=== PATIENT | male | born 1940 | race Caucasian/White ===

== ENCOUNTER 2022-09-05 09:50 | Emergency (ER) | payer MEDICARE, SELFPAY ==
--- NOTE | ~2022-09-05 | XR_ITS ---
EXAMINATION: [id number] INDICATION: Right lower chest pain TECHNIQUE: Frontal view of the chest and four views of the right ribs were obtained. COMPARISON: None. FINDINGS: There are minimal airspace opacities of the lung bases. No pleural effusion or pneumothorax . The cardiomediastinal silhouette is normal. There is a possible nondisplaced fracture at the shelley lateral aspect of the right fourth rib. Surgical clips in the right upper quadrant are likely from pr ior cholecystectomy. IMPRESSION: 1. Possible nondisplaced anterolateral fracture of the right fourth rib. Reviewed, dictated and finalized at location A.
[2022-09-05 10:24] VITALS: BP 131/82; PULSE 80; RESP 16; TEMP 36.6; O2SAT 99
--- NOTE | 2022-09-05 10:29 | ED.GENADULT ---
HPI - General Adult General Chief complaint: Unspecified Stated complaint: rt rib pain Time Seen by Provider: 09/05/22 10:20 Source: patient, RN notes reviewed and old records reviewed Mode of arrival: ambulatory Limitations: no limitations History of Present Illness HPI narrative: 82-year-old male who presents to [facility] with complaints of right rib pain for the past 1.5 weeks. Patient reports that he was working on his computer about 1.5 weeks ago and he dropped something bent over to pick it up and had hard sneeze felt sudden pain in right rib area. Pain to his right rib area has been aggravated by long drive from [place] he just completed to visit his brother in this area. Patient denies any shortness of breath or any increased pain with deep breathing, states some discomfort with ambulation. Patient denies any recent illness, has not taken any OTC medications for his discomfort. MD complaint: right rib pain Onset (ago): week(s) (1.5 weeks ago) Location: chest (right anteriolateral chest area) Radiation: non-radiation Treatments prior to arrival: none Related Data Home Medications Medication Instructions Recorded Confirmed atorvastatin 40 mg tablet 40 mg DAILY 09/05/22 09/05/22 carvedilol 6.25 mg tablet 6.25 mg BID 09/05/22 09/05/22 clopidogrel 75 mg tablet 75 mg DAILY 09/05/22 09/05/22 hydrochlorothiazide 25 mg tablet 25 mg DAILY 09/05/22 09/05/22 losartan 100 mg tablet 100 mg DAILY 09/05/22 09/05/22 metformin 500 mg tablet 500 mg DAILY 09/05/22 09/05/22 Allergies Allergy/AdvReac Type Severity Reaction Status Date / Time No Known Allergies Allergy Verified 09/05/22 10:09 Review of Systems Review of Systems: CONSTITUTIONAL: Denies fever, chills, or sweats. EYES: Denies visual changes, redness, or discharge. ENT: Denies rhinorrhea, congestion, sore throat, or otalgia. CARDIOVASCULAR: Denies chest pain, palpitations, or edema.positive for pain to anterolateral right chest area RESPIRATORY: Denies cough or dyspnea. GASTROINTESTINAL: Denies abdominal pain, nausea, vomiting, or diarrhea. GENITOURINARY: Denies dysuria or hematuria. SKIN: Denies rash or itching. MUSCULOSKELETAL: Denies back pain, joint pain, or myalgia. NEUROLOGIC: Denies headache, numbness, or weakness. PSYCHIATRIC: Denies anxiety or depression. All systems reviewed & are unremarkable except as noted in HPI and below PMFSH Past Medical History Medical History (Updated 09/07/22 @ 12:02 by Shannan Arauz NP) CAD (coronary artery disease) Diabetes Elevated cholesterol Hypertension Surgical History Surgical History (Updated 09/07/22 @ 11:55 by Shannan Arauz NP) H/O heart artery stent Social History Social History (Updated 09/07/22 @ 12:01 by Shannan Arauz NP) Smoking status: Former smoker Additional smoking assessment comments: Quit 1980 Alcohol intake: unknown Substance use type: does not use Living arrangements: alone Additional living arrangements comments: is from [place] visiting family in area Occupation/Education: retired Gender identity (if verbalized by the patient): Male Comments At time of signature, agree with nursing past medical, surgical, social and family history. There is no relevant family history pertinent to the presenting complaint Exam Narrative: GENERAL: Well-appearing, well-nourished, and in no acute distress. HEAD: Normocephalic, atraumatic. EYES: PERRLA and EOMI. ENT: Nares clear, no rhinorrhea or epistaxis. Mucous membranes moist.TM's normal with good light reflex, throat pink with no swelling. NECK: Supple.no lymphadenopathy CHEST: Clear to auscultation. No respiratory distress.SAO2 99% on room air, positive for right anterior lateral chest discomfort with no dyspnea noted. HEART: Regular rate and rhythm. No murmur heard. Normal peripheral pulses. ABDOMEN: Soft, nontender, nondistended, normal active bowel sounds. EXTREMITIES: Normal range of motion. No edema. SKIN: Warm,
== END 2022-09-05 11:18 | disposition home or self-care (01) ==
PROVIDERS: Emergency Provider Registered Nurse
DX: S22.31XA Fracture of one rib, right side, initial encounter for closed fracture (principal); X50.0XXA Overexertion from strenuous movement or load, initial encounter; X50.9XXA Other and unspecified overexertion or strenuous movements or postures, initial encounter; I25.10 Atherosclerotic heart disease of native coronary artery without angina pectoris; E11.9 Type 2 diabetes mellitus without complications; E78.00 Pure hypercholesterolemia, unspecified; I10 Essential (primary) hypertension; Z95.5 Presence of coronary angioplasty implant and graft; Z87.891 Personal history of nicotine dependence
CPT/HCPCS: 71101; 99213; G0463

== ENCOUNTER 2022-09-15 10:14 | Emergency (ER) | payer MEDICARE, SELFPAY ==
[2022-09-15 10:25] VITALS: BP 127/65; PULSE 66; RESP 16; TEMP 36.4; O2SAT 100
--- NOTE | 2022-09-15 10:26 | ED.GENADULT ---
HPI - General Adult General Chief complaint: Unspecified Stated complaint: refill medication Time Seen by Provider: 09/15/22 10:26 Source: patient and RN notes reviewed History of Present Illness HPI narrative: Patient is an 82-year-old male who presents to urgent care requesting medication refills. Patient states that he is from out of town and brought just enough of his chronic medications to get him through the next 10 days. Patient states that he dropped them in the bathroom sink last night. Patient is unable to get them refilled considering a [facility]. Patient denies any current complaints at this time. Patient aware of the plan of care. Some parts of this dictation were generated by voice recognition software and may contain typographical and/or grammatical inaccuracies. Related Data Home Medications Medication Instructions Recorded Confirmed carvedilol 6.25 mg tablet 6.25 mg PO BID 09/05/22 09/15/22 clopidogrel 75 mg tablet 75 mg PO DAILY 09/05/22 09/15/22 hydrochlorothiazide 25 mg tablet 25 mg PO DAILY 09/05/22 09/15/22 losartan 100 mg tablet 100 mg PO DAILY 09/05/22 09/15/22 metformin 500 mg tablet 500 mg PO DAILY 09/05/22 09/15/22 atorvastatin 80 mg tablet 80 mg PO DAILY 09/15/22 09/15/22 Allergies Allergy/AdvReac Type Severity Reaction Status Date / Time No Known Allergies Allergy Verified 09/15/22 10:25 Review of Systems Review of Systems: CONSTITUTIONAL: Denies fever, chills, or sweats. EYES: Denies visual changes, redness, or discharge. ENT: Denies rhinorrhea, congestion, sore throat, or otalgia. CARDIOVASCULAR: Denies chest pain, palpitations, or edema. RESPIRATORY: Denies cough or dyspnea. GASTROINTESTINAL: Denies abdominal pain, nausea, vomiting, or diarrhea. GENITOURINARY: Denies dysuria or hematuria. SKIN: Denies rash or itching. MUSCULOSKELETAL: Denies back pain, joint pain, or myalgia. NEUROLOGIC: Denies headache, numbness, or weakness. All other systems reviewed are negative, except as documented in HPI. [facility] Past Medical History Medical History (Updated 09/15/22 @ 10:31 by GREGORIO Ng) CAD (coronary artery disease) Diabetes Elevated cholesterol Hypertension Surgical History Surgical History (Updated 09/07/22 @ 11:55 by Shannan Arauz NP) H/O heart artery stent Social History Social History (Updated 09/07/22 @ 12:01 by Shannan Arauz NP) Smoking status: Former smoker Additional smoking assessment comments: Quit 1980 Alcohol intake: unknown Substance use type: does not use Living arrangements: alone Additional living arrangements comments: is from [place] visiting family in area Occupation/Education: retired Gender identity (if verbalized by the patient): Male Comments At the time of my signature, I reviewed and agree with the nursing past medical, surgical, social, and family history. There is no relevant family history pertinent to the patient complaint. Exam Narrative: GENERAL: This is a well-nourished, well-developed patient, in no apparent distress. HEAD: normocephalic, atraumatic. EYES: PERRL. Sclera clear/white. Vision is grossly intact. EARS: External ears normal NOSE: External nose normal with no obvious nasal discharge, nares without redness, no rhinorrhea. THROAT: Mucous membranes moist NECK: Neck supple, SKIN: warm, intact with no suspicious lesions or rash, good texture and turgor. NEURO: awake, alert, and oriented to person, place and time. There were no obvious focal neurologic abnormalities. EXTREMITIES: No clubbing, cyanosis, or edema. Course Course Level of Care: Express Care Visit Vital Signs Vital signs: Vital Signs Temperature 97.6 F 09/15/22 10:25 Pulse Rate 66 09/15/22 10:25 Respiratory Rate 16 09/15/22 10:25 Blood Pressure 127/65 09/15/22 10:25 Pulse Oximetry 100 09/15/22 10:25 Temperature 97.6 F 09/15/22 10:30 Pulse Rate 66 09/15/22 10:30 Respiratory
[2022-09-15 10:30] VITALS: BP 127/65; PULSE 66; RESP 16; TEMP 36.4; O2SAT 100
== END 2022-09-15 10:38 | disposition home or self-care (01) ==
PROVIDERS: Emergency Provider Nurse Practitioner Family
DX: Z76.0 Encounter for issue of repeat prescription (principal); Z87.891 Personal history of nicotine dependence; I25.10 Atherosclerotic heart disease of native coronary artery without angina pectoris; E11.9 Type 2 diabetes mellitus without complications; E78.00 Pure hypercholesterolemia, unspecified; I10 Essential (primary) hypertension; Z95.5 Presence of coronary angioplasty implant and graft
CPT/HCPCS: 99211; G0463